=== PATIENT | female | born 1945 | race Caucasian/White ===

== ENCOUNTER 2016-09-30 12:14 | Emergency (ER) | payer OTHER, BC ==
[2016-09-30 12:26] VITALS: O2SAT 95
--- NOTE | 2016-09-30 13:08 | CPEKG ---
Heart Rate: 81 RR Interval: 741 P-R Interval: 180 QRSD Interval: 80 QT Interval: 372 QTC Interval: 432 P [place]: 53 QRS [place]: -26 T Wave [place]: 15 EKG Severity - OTHERWISE NORMAL ECG - EKG Impression: SINUS RHYTHM EKG Impression: BORDERLINE LEFT AXIS DEVIATION Electronically Signed By: Jose M Brock 30-Sep-2016 14:02:45
[2016-09-30] MEDS ORDERED: MECLIZINE HCL 25 MG TAB PO ONE (13:09)
[2016-09-30] MEDS ORDERED: ONDANSETRON DISINTEGRATING 4 MG TAB PO ONE (13:10)
--- NOTE | 2016-09-30 13:12 | EDPHY ---
H & P Stated Complaint: Palpitations today; states she has been stressed out Time Seen by Provider: 09/30/16 12:54 HPI/ROS: CHIEF COMPLAINT: Palpitations, vertigo HISTORY OF PRESENT ILLNESS: The patient presents to the ED with a 1 day history of palpitations in vertigo. The patient reports that her symptoms have been progressively intermittent worsening over the past several months secondary to stress and anxiety surrounding the present role like banda. Patient denies any history of fall or trauma. She denies focal numbness or weakness. She denies visual complaints. Patient has no history of cardiac disease nor does she have cardiac risk factors. The patient denies recent upper respiratory infection. She denies additional acute complaints. REVIEW OF SYSTEMS: A comprehensive 10 point review of systems is otherwise negative aside from elements mentioned in the history of present illness. Source: Patient Exam Limitations: No limitations - Personal History Current Tetanus Diphtheria and Acellular Pertussis (TDAP): Yes - Medical/Surgical History PMH: Past medical history: Noncontributory - Family History Significant Family History: No pertinent family hx - Social History Smoking Status: Never smoked - Physical Exam Exam: General Appearance: Alert, no distress Eyes: Pupils equal and round no pallor or injection ENT, Mouth: Mucous membranes moist Respiratory: There are no retractions, lungs are clear to auscultation Cardiovascular: Regular rate and rhythm Gastrointestinal: Abdomen is soft and nontender, no masses, bowel sounds normal Neurological: A&O, normal motor function, normal sensory exam, normal cranial nerves Skin: Warm and dry, no rashes Musculoskeletal: Neck is supple nontender Extremities: symmetrical, full range of motion Constitutional: Initial Vital Signs Temperature (C) 36.5 C 09/30/16 12:20 Heart Rate 92 09/30/16 12:20 Respiratory Rate 18 09/30/16 12:20 Blood Pressure 162/108 H 09/30/16 12:20 O2 Sat (%) 95 09/30/16 12:20 Allergies/Adverse Reactions: bacitracin [From Neosporin ([id number])] Allergy (Mild, Verified 09/30/16 12: 21) Rash bacitracin zinc [From Neosporin ([id number])] Allergy (Mild, Verified 12:21) Rash neomycin sulfate [From Neosporin ([id number])] Allergy (Mild, Verified 12:21) Rash polymyxin B [From Neosporin ([id number])] Allergy (Mild, Verified 09/30/16 12 :21) Rash latex Allergy (Verified 09/30/16 12:21) bee stings Allergy (Uncoded 09/30/16 12:21) Home Medications: Medication Instructions Recorded Estradiol [Estrace Vaginal (*)] 42.5 gm VG 09/30/16 Herbals/Supplements -Info Only 1 ea PO 09/30/16 Meclizine HCl [Meclizine HCl 25 mg 25 mg PO BID PRN #30 tab 09/30/16 (RX,OTC)] Medical Decision Making - Diagnostics EKG Interpretation: EKG: Complete interpretation has been separately recorded in the [facility] archive. Summary impression: Sinus rhythm ED Course/Re-evaluation: The patient presents to the ED with symptoms of palpitations and mild vertigo. The patient's neurologic examination is normal. She is in no acute distress. The patient did receive oral Zofran and meclizine in the ED for presumed peripheral vertigo. The patient's EKG demonstrates no evidence of an arrhythmia. The patient presents to the ED with mild presumed peripheral vertigo. Her symptoms have improved with meclizine. I do feel the patient can safely be discharged home with instructions to return to the ED for any chest pain, shortness of breath, worsening symptoms or other concerns. The patient was re-evaluated 3:00 p.m. and is feeling much better. She will be discharged home with a prescription for meclizine. She is given referral for a local primary care provider. She is advised to return to the ED for any recurrent symptoms or other concerns. Differential Diagnosis: Differential diagnosis considered includes peripheral vertigo, central vertigo, arrhythmia - Data Points Medications Given: Discontinued Medications Meclizine HCl (Meclizine Hcl) 25 mg PO EDNOW ONE Stop: 09/30/16 13:10 Last Admin: 09/30/16 13:15 Dose: 25 mg Ondansetron HCl (Zofran Odt) 4 mg PO EDNOW ONE Stop: 09/30/16 13:11 Last Admin: 09/30/16 13:15 Dose: Not Given Departure - Departure Disposition: Home, Routine, Self-Care Clinical Impression: Peripheral vertigo, Palpitations Condition: Good Instructions: Benign Paroxysmal Positional Vertigo (ED) Additional Instructions: 1. Please use meclizine as needed for any recurrent vertigo or dizziness. 2. Please follow up with your regular physician as scheduled. You have also been given the number of a primary care provider here in [place] should you wish to establish local care. 3. Please return to the ED for markedly worsening symptoms, chest pain, difficulty breathing or other concerns. Referrals: Leandro Devlin DO [Doctor of Osteopathy] - As per Instructions
[2016-09-30 14:59] VITALS: BP 146/95; PULSE 85; RESP 15; TEMP 98.6
== END 2016-09-30 14:59 | disposition home or self-care (01) ==
DX: H81.399 Other peripheral vertigo, unspecified ear (principal); R00.2 Palpitations; Z91.040 Latex allergy status